=== PATIENT | female | born 1935 | race Caucasian/White ===

== ENCOUNTER 2021-05-07 16:18 | Inpatient (IN) | payer OTHER ==
[~2021-05-07] VITALS: Ht 154.9 cm; Wt 64.9 kg
--- NOTE | ~2021-05-07 | EMS ---
[address] [address] EMS Patient Care Report Name: SHY DOWNEY Room #: 352-P ADM IN M.R.#: [id number] Admission: 05/07/21 Attend Phys: Alli Christy Discharge: Date of : 34 Report #: [id number] THIS REPORT FOR: //name// Report Transmitted: 05/14/2021 12:46 EMS Care Summary [place], [place]/[facility] Incident [id number] @ 05/07/2021 15:29 Incident Location [address] [place] [address] Patient SHY DOWNEY Female, 86 Years 1935 Patient Address [address] [place] [id number] Patient History Hypertension (HTN),Hyperlipidemia,Gastro-Esophageal Reflux Disease (GERD),Anxiety Disorder (Panic Attacks),Depression,Glaucoma,Hypothyroidism, Patient Allergies No known allergies, Patient Medications Pantoprazole, Atorvastatin, Melatonin, Alprazolam, Levothyroxine, Docusate Sodium, Acetaminophen, Tramadol, Amlodipine, ASA, Chief Complaint Decreased LOC Disposition Transported [place] Dis[place] Reason Sick Person Transported To [facility] Narrative On arrival and waiting for staff to come to the door and unlock main door to [address] [address] EMS Patient Care Report Name: SHY DOWNEY Room #: 352-P ADM IN M.R.#: [id number] Admission: 05/07/21 Attend Phys: Alli Christy Discharge: Date of : 34 Report #: [id number] access Pt Nurse stated that Pt family is unhappy with the care that Pt was receiving and wanted her taking to [facility] ER due to her Granddaughter was a RN at. Medic asked Nurse if he could explain what was going on with Pt and what medical reason why the family wanted Pt transported to [facility] and he once again repeated the same thing over again. When EMS finally made it to Pt room Pt was found to be unresponsive and Nurse stated that she arrived from [facility] in her present state and Nurse things prior to arrival Pt might of had a stroke on 05/06/2021. Pt Nurse also stated Pt was flown up from [place] to [facility] via Airline and Pt was diagnosed with Coved 19 prior to leaving [place] for [facility]. Nurse also stated that Pt family took Pt from [facility] to [facility] ER where she was admitted for Covid 19, Nurse was unsure of date Pt was scene in the ER. Nurse also stated that Pt was transported to there facility and when asked if Pt had a Negative Covid test Nurse stated " Covid only last 10 days and then she is no longer with covid and is clear". EMS asked once again if Pt had a Negative test or any Covid test on arrival to there facility and he stated " No cause it has been over 10 days and she no longer has covid". EMS asked Nurse if this is Pt normal baseline and he said no, prior to flying up to [place] she lived on her own and was alert . Pt was found in her room pale, diaphoretic, with cyanotic lips, finger nail beds. Pt is a GCS 08. EMS had issues entering building and once EMS gained access they found Pt in bed in room and Pt is very hot to the touch, diaphoretic and pale skin color and cyanotic fingertips, nail bed and lips and Pt is a GCS 08. Pt is with oxygen Sat's @ 88% on room air and lungs sounds were absent in lower lobes bilateral and diminished in upper lobes bilateral as well. EMS immetally started Neb tx via neb mask with Albuterol and Atrovent at 8 LPM oxygen and when Pt was placed on 4 lead she was found to be in Course A Fib which Pt does not have a history of Afib. EMS preformed a 12 lead that showed Pt to be in a unknown rhythm and when EKG strip was examined closer by Medic it was determined that Pt was with rapid course Atrial Fib. Pt is with irregularly irregular and bounding radial pulse and carotid pulse' on eval by EMS. and while performing the EKG / 12 lead Pt was not moving or shaking during procedure, . Due to Pt having irregularly irregular radial and carotid pulses Medic decided not to synchronize cardiovert Pt due to Pt LOC being the same since she was received by staff 2 days ago and due to Pt condition Medic felt a closer facility would be better for Pt then running down to [facility]. Medic opened up the door to inform staff and Pt Granddaughter who also arrived of Medic's decision and she Stated "My father wanted her to go to [facility] cause my sister is a Nurse there" . Medic attempted to explain to her that Pt is critical and needed to go to closer facility for care, tx and once stabilized if they wanted her transferred they could request her to be transported. Pt Granddaughter stated "No and you can explain to my father when he arrives " Pt son arrived and staff and Granddaughter informed him of Medics decision and Prior to leaving for clarification Medic contacted Medical Control at [facility] [address] [place] [address] EMS Patient Care Report Name: SHY DOWNEY Room #: 352-P ADM IN M.R.#: [id number] Admission: 05/07/21 Attend Phys: Alli Christy Discharge: Date of : 34 Report #: [id number] -W ER and explained situation and concern to Medical Control and per M.D 1 EMS received his blessing to transport to [facility] for further care and tx and if they wanted Pt transported later on they could request it. By this time other family members showed up and EMS requested Car [employer] and pumper to return along with [facility] due to Pt family at times attempting to get into Unit while EMS was treating Pt. Once scene was secured by Car [employer] and Pumper 28 EMS was able to leave and transport Pt to [facility] for further care, tx and Pt then went back into slower A Fib rhythm but still remained a GCS 08. EMS repeated Albuterol tx again and contacted [facility] and informed them of the situation. Pt started to move air a little better thru lung gimenez and Pt oxygen sat's increased and Pt showed no signs of cyanotic noted but is still pale and diaphoretic and hot to the touch during transport. Pt received by RN and Eric in ER. EMS was informed later after the call that Pt was positive for Covid 19 due to a rapid test done on arrival in the ER. Initial Vitals @15:51P: 280,R: 24,BP: 154/71,Pain: 0/10,GCS: 8,Temp: 102.4F,Glucose: 144,SpO2: 88,Revised Trauma: 10,NV Suspected: false @16:03P: 207,R: 22,Pain: 0/10,GCS: 8,SpO2: 97,NV Suspected: false @16:09P: 118,R: 22,BP: 139/74,Pain: 0/10,GCS: 8,SpO2: 98,Revised Trauma: 10,NV Suspected: false @16:11P: 109,R: 22,BP: 142/82,Pain: 0/10,GCS: 8,SpO2: 98,Revised Trauma: 10, Assessments @15:43MENTAL:Unresponsive,SKIN:Cyanotic,Pale,Hot,Diaphoresis,HEENT:Eyes: Right Pupil: 6-mm,Eyes: Left Pupil: 6-mm,Eyes: Left: Constricted,Eyes: Right: Constricted,Head/Face: No Abnormalities,Neck/Airway: No Abnormalities,LUNG SOUNDS:General: No Abnormalities,ABDOMEN:General: No Abnormalities,PELVIS//GI:No Abnormalities,EXTREMITIES:Capillary Refill: Right Upper: 4 Sec,Left Arm: No Abnormalities,Right Arm: No Abnormalities,Left Leg: No Abnormalities,Right Leg: No Abnormalities,PULSE:Carotid: 1+ Thready,Radial: 1+ Thready,NEURO:No Abnormalities,@16:14MENTAL:No Abnormalities,SKIN:Hot,Pale,Diaphoresis,HEENT:Eyes: Right Pupil: 5-mm,Eyes: Left Pupil: 5-mm,Eyes: Right: Dilated,Eyes: Left: Dilated,Head/Face: No Abnormalities,Neck/Airway: No Abnormalities,LUNG SOUNDS:General: No Abnormalities,ABDOMEN:General: No Abnormalities,PELVIS//GI:No Abnormalities,EXTREMITIES:Capillary Refill: Right Upper: < 2 Sec,Capillary Refill: Left Upper: 4 Sec,Left Arm: No Abnormalities,Right Arm: No Abnormalities,Left Leg: No Abnormalities,Right Leg: No Abnormalities,PULSE:Carotid: 1+ Thready,Radial: 1+ Thready,NEURO:No Abnormalities, Impression [facility] [address] [place] [address] EMS Patient Care Report Name: SHY DOWNEY Room #: 352-P ADM IN M.R.#: [id number] Admission: 05/07/21 Attend Phys: Alli Christy Discharge: Date of : 34 Report #: [id number] Acute Respiratory Distress (Dyspnea) Procedures @16:0312-Lead ECGResponse: UnchangedSucceeded@15:43ALS AssessmentResponse: UnchangedSucceeded@16:05General CommentsResponse: Unchanged@15:513-Lead ECGResponse: UnchangedSucceeded@16:05Saline Lock 0cc (18 ga) Site: Antecubital-LeftResponse: UnchangedFailed@15:53Saline Lock 0cc (20 ga) Site: Antecubital-LeftResponse: UnchangedFailed@15:46Albuterol - 2.5 Milligrams (mg) - NebulizedResponse: Unchanged@16:06Albuterol - 2.5 Milligrams (mg) - NebulizedResponse: Unchanged@15:43Atrovent - 0.5 Milligrams (mg) - NebulizedResponse: Unchanged@15:58General CommentsResponse: Unchanged Timeline 15:28,Call Received 15:28,Dispatch Notified 15:29,Dispatched 15:31,En Route 15:36,On Scene 15:43,At Patient 15:43,ALS Assessment,Response: UnchangedSucceeded, 15:43,Atrovent - 0.5 Milligrams (mg) - Nebulized,Response: Unchanged 15:46,Albuterol - 2.5 Milligrams (mg) - Nebulized,Response: Unchanged 15:51,3-Lead ECG,Response: UnchangedSucceeded, 15:51,BP: 154/71 M,PULSE: 280,RR: 24 R,SPO2: 88 Ox,ETCO2: ,B,PAIN: 0,GCS: 8, 15:53,Saline Lock 0cc 20 ga Site: Antecubital-Left,Response: UnchangedFailed, 15:58,General Comments,Response: Unchanged 16:03,12-Lead ECG,Response: UnchangedSucceeded, 16:03,BP: / M,PULSE: 207,RR: 22 R,SPO2: 97 Ox,ETCO2: ,BG: ,PAIN: 0,GCS: 8, 16:05,General Comments,Response: Unchanged 16:05,Saline Lock 0cc 18 ga Site: Antecubital-Left,Response: UnchangedFailed, 16:06,Albuterol - 2.5 Milligrams (mg) - Nebulized,Response: Unchanged 16:08,Depart Scene 16:09,BP: 139/74 M,PULSE: 118,RR: 22 R,SPO2: 98 Ox,ETCO2: ,BG: ,PAIN: 0,GCS: 8, 16:11,BP: 142/82 M,PULSE: 109,RR: 22 R,SPO2: 98 Ox,ETCO2: ,BG: ,PAIN: 0,GCS: 8, 16:15,At Destination 16:31,Call Closed Disclaimer v1.1 Copyright 2020 [employer] This EMS Care Summary contains data elements from the applicable legal record (which may be displayed differently). It is designed to provide pertinent information for the following purposes: continuity of care, clinical quality, and state data reporting. The complete legal record is available to ED staff and administrators of the receiving hospital in [employer]'s Patient Tracker. All data is provided "as is."
[2021-05-07 16:19] VITALS: BP 151/98
[2021-05-07 16:48] LABS: URINE BLOOD 1+ (Negative); URINE CLARITY CLOUDY; URINE COLOR YELLOW; URINE GLUCOSE-RANDOM* NEGATIVE (Negative); URINE KETONES 2+ (Negative); URINE PROTEIN (DIPSTICK) 1+ (Negative); URINE SPECIFIC GRAVITY >= 1.030 (1.005-1.035)
[2021-05-07 16:49] LABS: ABSOLUTE NEUTROPHILS 9.5 thou/uL (1.4-8.2); BASOPHILS 0.4 % (0.0-2.0); EOSINOPHILS 0.1 % (0.0-3.0); HEMATOCRIT 44.5 % (37.0-47.0); LYMPHOCYTES 12.5 % (24.0-44.0); MCHC 33.7 g/dL (28.0-37.0); MONOCYTES 10.6 % (1.0-8.0); PLATELET COUNT 394 thou/uL (150-400); POLYS 76.4 % (36.0-66.0); RDW 12.9 % (10.5-14.5); WBC 12.4 thou/uL (4.0-11.0)
[2021-05-07 16:54] LABS: CALCIUM 8.9 mg/dL (8.5-10.1); CREATININE 0.8 mg/dL (0.6-1.0); POTASSIUM 3.6 mmol/L (3.5-5.1)
[2021-05-07 16:58] LABS: URINE LEUKOCYTES-REFLEX 2+ (Negative); URINE NITRITE-REFLEX POSITIVE (Negative)
[2021-05-07 16:59] LABS: ICTOTEST (BILI CONFIRMATORY) Negative (Negative); URINE BILIRUBIN NEGATIVE (Negative)
[2021-05-07 17:02] LABS: AMP/METHAMP Negative (Negative); BARBITURATES Negative (Negative); BENZODIAZEPINES POSITIVE (Negative); COCAINE Negative (Negative); METHADONE Negative (Negative); OPIATES Negative (Negative); PCP Negative (Negative)
[2021-05-07 17:04] LABS: ALBUMIN 2.8 g/dL (3.4-5.0); TOTAL BILIRUBIN 0.7 mg/dL (0.2-1.0); TOTAL PROTEIN 7.2 g/dL (6.4-8.2)
[2021-05-07 17:11] LABS: BACTERIA-REFLEX >30 Many /HPF (None Seen); MUCUS 4-6 Moderate strn/LPF (None Seen); SQUAMOUS None Seen /LPF (0-3); URINE RBC 1-2 Rare /HPF (NONE SEEN); URINE WBC-REFLEX >25 Many /HPF (0-5)
--- NOTE | 2021-05-07 17:51 | NUR ---
FAMILY PHONE NUMBERS PER FAMILY CALL SHY FIRST THE DAUGHTER AT [phone] IF UNABLE TO REACH PLEASE CALL GRANDDAUGHTER JABARI TONEY [phone] OR SON SHANE OCONNOR [phone]
[2021-05-07 18:02] VITALS: BP 155/77
[2021-05-07 18:08] VITALS: BP 155/77
[2021-05-07 18:34] VITALS: BP 149/78
[2021-05-07 23:38] VITALS: BP 146/78
[2021-05-08] VITALS (7 sets, daily range): BP systolic 152–210; BP diastolic 72–102
[2021-05-08] MEDS ORDERED: XANAX 0.25 MG0.25 MG PO (03:29)
[2021-05-08] MEDS ORDERED: LEVO-T75 MCG PO (03:30)
[2021-05-08] MEDS ORDERED: NORVASC5 MG PO (03:31)
[2021-05-08] MEDS ORDERED: LIPITOR 10 MG10 M1 PO (03:32)
[2021-05-08] MEDS ORDERED: OMEPRAZOLE40 MG PO (03:33)
[2021-05-08] MEDS ORDERED: ASA81BEC PO (03:34)
[2021-05-08] MEDS ORDERED: VITAMIN D21250 MCG PO (03:36)
[2021-05-08] MEDS ORDERED: APAP650 PO (03:37)
[2021-05-08] MEDS ORDERED: VITAMIN E1000 UNIT PO (03:39)
[2021-05-08] MEDS ORDERED: EVENING PRIMRO1 EACH PO (03:41)
[2021-05-08] MEDS ORDERED: PRESERVISION L1 EACH PO (03:42)
--- NOTE | 2021-05-08 05:14 | NUR ---
ADMIT PT ADMITTED TO 3 HAY FROM ED WITH COVID PNEUMONIA, AND AMS. PT NON VERBAL BUT DOES AWAKE TO STIMULI. RESISTANT TO CARES GETS VERY TENSE. ON 2 LITERS O2 VIA NC, REPOSITIONED Q2HRS. NO SKIN ISSUES NOTED. IVF INFUSING ORDERED, WILSON INTACT DRAINING A MODERATE AMOUNT OF DARK YELLOW URINE. FAMILY GIVEN PHONE UPDATE AND HELPED COMPLETE ADMISSION QUESTIONAIRE. TELEMETRY INTACT READING SR/ST, AFIB. CONTINUE POC.
[2021-05-08 06:32] LABS: HEMATOCRIT 42.7 % (37.0-47.0); HEMOGLOBIN 14.2 gm/dL (12.0-15.0); MCH 30.4 pg (26.0-34.0); MCHC 33.2 g/dL (28.0-37.0); MCV 91.4 fL (80.0-100.0); RBC 4.67 mil/uL (4.20-5.00); RDW 13.2 % (10.5-14.5); WBC 7.1 thou/uL (4.0-11.0)
[2021-05-08 06:35] LABS: CALCIUM 8.1 mg/dL (8.5-10.1); CREATININE 0.7 mg/dL (0.6-1.0); POTASSIUM 3.6 mmol/L (3.5-5.1)
[2021-05-08 06:39] LABS: ALBUMIN 2.4 g/dL (3.4-5.0); PHOSPHORUS 2.3 mg/dL (2.5-4.9)
--- NOTE | 2021-05-08 15:01 | EKG ---
[place] [address] [facility] [email or web address] [address] ELECTROCARDIOGRAM REPORT Name: SHY DOWNEY Room #: 352-P ADM IN M.R.#: [id number] Admission: 05/07/21 Attend Phys: Alli Christy Discharge: Date of : 34 Report #: [id number] [facility] ED Test Date: 2021-05-07 Test Time: 16:22:29 Pat Name: SHY DOWNEY Department: Room: [facility] Gender: F Coil Winder: ARCENIO : 1935 Requested By: Eugene Conklin Order Number: [id number] MD: Flavio Fry Measurements Intervals [place] Rate: 122 P: DC: QRS: -33 QRSD: 113 T: 29 QT: 340 QTc: 485 Interpretive Statements Atrial fibrillation Leftward axis Poor R wave progression Artifact in lead(s) I,aVR,aVL,V1,V2,V3,V4,V5,V6 No previous ECG available for comparison Electronically Signed On 05-08-2021 15:00:51 CDT by Flavio Fry [email or web address] <ELECTRONICALLY SIGNED> By: Flavio Fry MD, [facility] 05/08/21 1500 1622 1622 Flavio Fry MD, [facility] /EPI
--- NOTE | 2021-05-08 17:29 | NUR ---
PT ALERT AND ORIENTED X 0. PT IS ROMANSH ONLY SPEAKING, BUT IS NONVERBAL WHEN PHONOGRAPH CARTRIDGE ASSEMBLER IS ATTEMPTED. SPOKE WITH AND UPDATED FAMILY ABOUT PT CONDITION, PT'S DAUGHTER SAID PT HAS HISTORY OF UTI'S WITH CONFUSION. PT WAS ABLE TO ANSWER YES/NO QUESTIONS FOR DAUGHTER. PT DENIED PAIN WHEN SPEAKING TO DAUGHTER. DAUGHTER INFORMED US PT TESTED POSITIVE FOR COVID ON 04/25, WITH SYMPTOMS STARTING ON 04/19. PT IS ANXIOUS AND UNCOMFORABLE WITH PHYSICAL TOUCH. PT IS ON [address]. SKIN INTACT WITH SOME BRUISING. DIMINISHED UPPER LOBES AND CRACKLES IN LOWER LOBES. FALL PRECAUTIONS IN PLACE. WILL CONTINUE TO MONITOR.
--- NOTE | 2021-05-08 17:51 | NUR ---
PHYSICIAN MADE AWARE OF NPO DUE TO FAILED SWALLOW STUDY
[2021-05-09 03:00] VITALS: BP 155/74
--- NOTE | 2021-05-09 04:29 | NUR ---
PROGRESS PT MORE AWAKE THIS SHIFT, RESISTING CARES BUT ALLOWS WHEN SPOKEN TO. PT IS UPPER SORBIAN SPEAKING AND SUFFERS FROM DEMENTIA SO IS NOT ABLE TO COMMUNICATE. BRUISE NOTED TO RIGHT BUTTOCK FAMILY REPORTED SHE HAD 3 FALLS BEFORE HOSPITALIZATION. REPOSITIONED Q2HRS. IV TO LF INTACT INFUSING IVF'S ORDERED. ORAL CARE PROVIDED. PT REFUSED PERICARE BUT IT WAS PERFORMED BEST I COULD WITH HER RESISTANCE. URINE DARK YELLOW IN DECREASED AMOUNT FROM PREVIOUS SHIFT. TELEMETRY INTACT READING ST/AFIB. O2 SAT ON ROOM AIR WAS 95% SO O2 LEFT OFF WILL CONTINUE TO MONITOR.
[2021-05-09 05:38] LABS: HEMATOCRIT 42.6 % (37.0-47.0); HEMOGLOBIN 14.5 gm/dL (12.0-15.0); MCH 30.9 pg (26.0-34.0); MCV 90.9 fL (80.0-100.0); RBC 4.68 mil/uL (4.20-5.00); RDW 13.1 % (10.5-14.5); WBC 12.2 thou/uL (4.0-11.0)
[2021-05-09 05:55] LABS: ALBUMIN 2.4 g/dL (3.4-5.0); CALCIUM 8.3 mg/dL (8.5-10.1); CREATININE 0.7 mg/dL (0.6-1.0); PHOSPHORUS 2.2 mg/dL (2.5-4.9); POTASSIUM 3.2 mmol/L (3.5-5.1)
[2021-05-09 08:08] VITALS: BP 182/76
--- NOTE | 2021-05-09 13:32 | HC ---
[facility] [place] [address] CONSULTATION Name: SHY DOWNEY Room #: 352-P ADM IN M.R.#: [id number] Admission: 05/07/21 Attend Phys: Alli Christy Discharge: Date of : 34 Report #: [id number] THIS REPORT FOR: cc: Anuj Parry MD, Srinath MD [place], Roxane S. DO ~ NEUROLOGY CONSULTATION HISTORY OF PRESENT ILLNESS: The patient is an 86-year-old female who presented to the Emergency Department with altered mental status, shortness of breath and rapid heart rate. Per EMS, the patient was found with altered mental status and elevated heart rate. The patient tested positive for COVID 10 days ago. She had been admitted to [facility] and then transferred to [facility]. According to the information in the chart, the patient's son states that the patient has been altered since admission to [facility] which was roughly 8 days prior to admission. According to the family, the patient is talkative and mostly independent at baseline, but has been unresponsive and contracted since admission. When the family spoke with the patient's primary care provider, they told them to take the patient to [facility] but the patient was brought to [place] instead. The patient is unable to provide any history. After leaving the hospital, the patient's daughter and granddaughter called my office and I was able to speak to them both. They tell me the patient has difficulty with memory although she is able to take care of her dog. The patient sometimes does not recognize her granddaughter. She thinks her granddaughter is her daughter. She also has general trouble with her memory but the family thought that was normal for her age. They tell me that the patient does not have a history of Parkinson's disease. They also told me that the patient has not be right since she was admitted to the hospital. They also told me the patient was not taking haloperidol. They didn't know what the medication was. The patient also has difficulty remembering to take her medications and they remind her. PAST MEDICAL HISTORY: Hypothyroidism, anxiety, hypertension, hyperlipidemia, gastroesophageal reflux. PAST SURGICAL HISTORY: Unknown. CURRENT MEDICATIONS: Include Sinemet 10/100 3 times a day, dexamethasone 6 mg IV, enoxaparin 30 mg subq at bedtime, hydralazine 10 mg IV q. 8 hours, levofloxacin 500 mg IV daily. ALLERGIES: None. [address] [address] CONSULTATION Name: SHY DOWNEY Room #: 352-P [facility]#: [id number] Admission: 05/07/21 Attend Phys: Alli Christy Discharge: Date of : 34 Report #: [id number] VITAL SIGNS: Temperature is 37.3, pulse rate 107, respiratory rate 26, blood pressure 163/86. Bedside pulse oximetry 95% on 2 liters. LABORATORY WORK: Hematology: White blood cell count 7.1, hemoglobin 14.2, hematocrit 42.7, MCV 91.4, platelet count 337,000. Urinalysis, 1+ protein, 2+ ketones, 1+ blood, nitrite positive, leukocyte esterase positive, many white blood cells. Chemistry: Sodium 151, potassium 3.6, chloride 112, carbon dioxide 29, BUN 39, creatinine 0.7, GFR 79, glucose 194, lactic acid 1.7, calcium 8.1, phosphorus 2.3, total bilirubin 0.7, AST 30, ALT 30, alkaline phosphatase 151, total protein 7.2, albumin 2.4. B12 1121. TSH 2.21, free T4 of 1.2. IMAGING: CT scan of the head is unremarkable. NEUROLOGIC EXAMINATION: The patient is unresponsive to verbal or tactile stimulation. She is sitting up in bed with her eyes closed and her arms clenched to her chest. She does not follow any commands. Pupils are equally round and reactive to light. Facial expressions appear symmetrical bilaterally. Motor exam: The patient is keeping her arms tied into her chest. It is very difficult to perform passive range of motion in the arms or the legs. Reflexes are trace throughout. Plantar responses are flexor. Coordination and gait cannot be tested. IMPRESSION AND PLAN: The patient was more alert than she is now. However, after speaking to her daughter and granddaughter, there is an underlying component of dementia, perhaps even moderate in severity since she sometimes has difficulty recognizing her granddaughter. There are other factors that can contribute to increased confusion. One of these is COVID intself: however, the patient is also hypernatremic and she has a urinary tract infection. The IV fluids have been discontinued. If the patient does go back on IV fluids, I would recommend half-normal saline. For the urinary tract, she is being treated with levofloxacin and blood cultures have been ordered and have been drawn, but the results are not available yet. The patient's B12 and folate are normal. The CT head is unremarkable. I realize the patient has increased tone in the upper extremities but I wouldn't recommend Sinemet at this point. At this point, I have no further suggestions, but we will reevaluate the patient tomorrow. <ELECTRONICALLY SIGNED> By: Alta Vallejo DO 05/09/21 1332 1512 [id number] Alta Vallejo DO /harsh
[2021-05-09 17:32] VITALS: BP 161/70
--- NOTE | 2021-05-09 19:25 | NUR ---
ASSUMED PATIENT CARE AT 0700. AWAKE. RESTLESS. AMBULATED IN ROOM. PROGRESSING TOWARDS POC GOALS.
[2021-05-09 19:29] VITALS: BP 141/74
--- NOTE | 2021-05-09 19:34 | NUR ---
ASSUMED PATIENT CARE AT 0700, AWAKE. ANXIOUS. NONE VERBLE. VSS. NOT TOWARDS POC GOALS.
[2021-05-10 05:03] VITALS: BP 116/42
--- NOTE | 2021-05-10 05:40 | NUR ---
PROGRESS PT ALERT BUT IS UGANDAN SPEAKING, MAY BE ABLE TO SPEAK SOME TRISTANIAN SHE ASKED ME WHEN SHE COULD EAT. REFUSES ORAL CARE SO 1 CC OF WATER PLACED IN MOUTH FOR COMFORT A FEW TIMES THROUGHOUT NIGHT NO CHOKING AFTER NOTED, APPLIED LIP BALM AND SHE SMILES AFTER. STILL IN CONTRACTED POSITION AND IS VERY RESISTANT TO CARES, REPOSITIONED THROUGHOUT NIGHT AND PICTURE TAKEN OF THE RIGHT BUTTOCK BRUISE THAT APPEARS LESS DARK THAN PREVIOUS SHIFT. HEELS FLOATED. LUNGS CLEAR AND O2 SATS 95 AND ABOVE ON ROOM AIR SO O2 REMOVED. HYDRALAZINE HELD BP 116/42. WILSON CATHETER IN PLACE 1050CC OF CLEAR LIGHT YELLOW URINE NOTED. IV TO LH INFUSING D5@100CC'S/HR. CONTINUE POC.
[2021-05-10 06:00] LABS: ALBUMIN 2.1 g/dL (3.4-5.0); CREATININE 0.7 mg/dL (0.6-1.0); PHOSPHORUS 2.8 mg/dL (2.5-4.9); POTASSIUM 3.2 mmol/L (3.5-5.1)
[2021-05-10 07:04] VITALS: BP 152/75
--- NOTE | 2021-05-10 10:00 | NUR ---
PT WAS PLACED ON CART FOR MRI...SHE BECAME AGITATED AND SWUNG AT STAFF...UNABLE TO CALM PATIENT SO AN ORDER WAS RECEIVED FROM FOR [facility] FOR MRI TO BE COMPLETED AFTER QUILLER OPERATOR CALLED TO STATE SHE WAS UNABLE TO KEEP PATIENT ON CART FOR TEST...WHEN PATIENT RETURNED FROM MRI SHE WAS VERY DROWSY...HER VSS BUT REMAINS DIFFICULT TO AWAKEN...WHEN TURNED PATIENT SHE WOKE UP AND WAS AGAIN TRYING TO GRAB AT STAFF...WILL MONITOR..
--- NOTE | 2021-05-10 11:28 | NUR ---
Case opened to follow for dc planning. Pt admitted with enceph/UTI and is covid recovered from first pos test on 04/25/21. Cm assessment completed with pt's dtr Amada with whom she lives in [place], [place]. She reports that they recently moved from [place], [place] a few months ago. The pt's pcp is with [facility] [phone], fax [phone]. She went to [facility] with covid and then dc'd to SNF at [facility] for rehab. She was only there less than 2 days before admitted here. Family reports the pt's primary language is [place] Islander. She lives with them and is normally indep with gait short distances and needs help on the stairs. She helps with laundry and dishes and is normally active throughout the day. She only uses a rwalker and cane when going out of the home. She is getting an MRI today of her cspine/head. Neuro is seeing her. Family reports her to be forgetful and have some stm loss. Pt's sons are in town from [place] and would like to see her if ISO is dc'd. Nursing updated. Clinical updated faxed to the [facility] liason who reports they are holding her bed. They will need therapy evals and new ins auth for readmission. Pt's dtr is not sure if they want her to return there. They are discussing as a family. HH referral discussed along with other snf options. They feels she may do better with family who are familiar to her and speak [place]er. PT/OT evals are pending. ST is recommending a modified diet and honey thickened liquids. The pt is unvaccinated per her dtr. Dtr is is also recovered from recent covid. The pt has a lift chair at home, rwalker and a cane. Dtr notes poor vision due to glaucoma. Cm role introduced. Will follow along and she how she does with therapy.
[2021-05-10 14:58] VITALS: BP 132/77
[2021-05-10 19:45] VITALS: BP 135/54
--- NOTE | 2021-05-10 22:00 | NUR ---
PT ASLEEP SINCE BEGINNING OF SHIFT. PT OPENS EYES TO VERBALIZATION. COMPLIANT WITH VS AND LOVENOX. PT NOT MAKING VERBAL STATEMENTS. WILSON TO DD. BED ALARM ON. FLUSHED SKIN TONE. IVF INTACT.
--- NOTE | 2021-05-11 00:48 | NUR ---
PT AWAKENED PULLING OFF COVERS AND TELE BOX, GRABBING ON TO WIRES AND NOT RELEASING. ICE CREAM AND HS MEDS PROVIDED SINCE PT AWAKE. PROVIDER NOTIFIED. PT WONT LEAVE TELE BOX ON, AND HX OF SR, AFIBB, FEW RUNS OF VTACH. PRN PROVIDED TO HELP PT RELAX AND SO NURSE CAN REPLACE TELE BOX.
[2021-05-11 03:32] VITALS: BP 135/63
[2021-05-11 04:42] LABS: CALCIUM 7.9 mg/dL (8.5-10.1); CREATININE 0.7 mg/dL (0.6-1.0); MAGNESIUM 1.6 mg/dL (1.8-2.4); POTASSIUM 3.1 mmol/L (3.5-5.1)
[2021-05-11 07:16] VITALS: BP 126/66
[2021-05-11 15:41] VITALS: BP 119/73
--- NOTE | 2021-05-11 18:18 | NUR ---
ASSUMED PATIENT CARE AT 0700. A/0X2. AGITATED IN AM. FAMILY CAME TO VISIT. POOR APPATITE. MAX ASSISTED TO CHAIR. SLOWLY TOWARDS POC GOALS.
[2021-05-11 19:26] VITALS: BP 152/72
[2021-05-12 02:44] VITALS: BP 153/82
--- NOTE | 2021-05-12 06:41 | NUR ---
PROGRESS PT ALERT ORIENTED TO SELF AND SITUATION, SPEAKS GUINEAN BUT DOES SPEAK SOME DUTCH. ASKED ME MY NAME TODAY. LUNGS CLEAR, VSS. TELEMETRY INTACT READING SR. TAKING HONEY THICK LIQUIDS WITH NO DIFFICULTY. IV TO LEFT FOREARM INTACT AND INFUSING IVF'S ORDERED WILSON IN PLACE DRAINING ADEQUATE AMOUNT OF CLEAR YELLOW URINE.. SON AT BEDSIDE AT START OF SHIFT PT WAS HAPPY AND CONVERSING. CALLED OUT A LITTLE WHEN HE LEFT BUT ABLE TO COMMUNICATE ENOUGH TO SETTLE HER IN FOR SLEEP. CONTINUE TO MONIOR
[2021-05-12 07:28] LABS: ALBUMIN 2.2 g/dL (3.4-5.0); CALCIUM 7.8 mg/dL (8.5-10.1); CREATININE 0.7 mg/dL (0.6-1.0); PHOSPHORUS 2.9 mg/dL (2.6-4.7); POTASSIUM 3.6 mmol/L (3.5-5.1)
[2021-05-12 07:42] VITALS: BP 128/80
--- NOTE | 2021-05-12 16:58 | NUR ---
Spoke with the daughter today and gave an update on pt's status. Daughter clearly stated that she does not want pt to go back to [facility] d/t their unsatisfactory experience. List of facilities were given yesterday to the grand daughter of the pt. Advised daughter to look at the facility and to choose her top 3 to 4 and case management will get back to them tomorrow and work on the facilities. PT and OT ordered. Family member at the bedside, was very greatful of the great care the pt has had with us. Family member also mentioned that they would have liked to keep the pt at home only that daughter with home pt lives with is sick with COVID. CM to follow.
[2021-05-12 17:00] VITALS: BP 127/86
--- NOTE | 2021-05-12 17:22 | NUR ---
RESUMED CARE THIS AM. PT ALERT AND ORIENTED X 2. PT COMPLAINED OF HEADACHE TODAY WITH GOOD RELIEF FROM ACETAMINOPHEN. PT APPETITE IS LOW. FAMILY AT BEDSIDE THIS AFTERNOON. PT GUARDS FROM ASSESSMENT. DENIES ANY NEEDS AT THE MOMENT. WILL CONTINUE TO MONITOR.
[2021-05-12 19:35] VITALS: BP 118/63
--- NOTE | 2021-05-12 22:31 | NUR ---
PROGRESS PT UP IN CHAIR AT START OF SHIFT TRANSFERRED BACK TO BED WITH MAX OF 2 GAIT BELT AND PIVOT TRANSFER. WILSON CATHETER DC'D, EXTERNAL FEMALE CATH PLACED. IVF'S INFUSING INTO LF WITHOUT DIFFICULTY. PT C/O BUTTOCK PAIN, BRUISE NOTED FROM FALLS AT HOME SOME SCABBING TO AREA NOTED BY DAY SHIFT PERICARE AND BARRIER CREAM APPLIED. TYLENOL GIVEN FOR COMFORT. PT REPOSITIONED AND BUTTOCKS AND HEELS OFFLOADED. CONTINUE POC. PLAN IS TO DC TO SNF WHEN MEDICALLY STABLE.
[2021-05-13 03:54] VITALS: BP 104/58
[2021-05-13 07:07] VITALS: BP 124/50
--- NOTE | 2021-05-13 14:16 | NUR ---
SW reviewed chart and spoke with nursing and attending physician. Ptis progressing towards goals for discharge. Recommendation made for pt to go to post-acute care v. home with 24 hour care. MIKKI spoke with pt's dtr, Amada, via phone to discuss options. Pt's dtr is sick with COVID and states that family is wanting to consider SNF placement. Pt's dtr/family do not want pt to return to [facility]. SW discussed alternate options with pt's dtr. Pt's dtr states that pt's granddtr mainly handles healthcare decisions. Contact info for SW provided for pt's granddtr to call to discuss SNF options. SW left in-network SNF list for pt's family to review. SW explained need for insurance authorization for SNF placement. Pt's dtr verbalized understanding. Awaiting call from pt's granddtr at this time. MIKKI is following to assist as needed with discharge planning.
[2021-05-13 15:23] VITALS: BP 109/62
--- NOTE | 2021-05-13 17:57 | NUR ---
assumed care of pt at 0700. pt alert to self and situation, limited anguillan speaking skills. incontinent of urine. ext cath of tube in place. skin tear to right glute - zguard and optifoam in place. q2t. fluids infusing per order. vitals stable. waiting on placement. family requesting to bring in emotional support dog - unable to per risk mgmt unless the dog is a service dog able to perform tasks.
[2021-05-13 19:58] VITALS: BP 144/54
--- NOTE | 2021-05-14 03:14 | NUR ---
PATIENT GOT AGITATED AROUND 2200, PRN XANAX GIVEN WITHOUT SUCCESS. PATIENT STARTED YELLING AND SEEMS LIKE SHE WAS SEEING UNSEEN OTHERS. PATIENT REMOVED THE EXTERNAL CATHETER AND LATER PULLED OUT THE IV.PRN HALDOL GIVEN PER ORDER D/T INCREASED ANXIETY/AGITATION. PATIENT REFUSED THIS NURSE TO INSERT ANOTHER IV ATTEMPT X2. PATIENT ENCOURAGED FLUIDS. PATIENT INCONTIENT PERICARE AND BARRIER CREAM APPLIED. PATIENT HAS NO S/S OF PAIN OR DISCOMFORT.PATIENT IN BED ASLEEP AT THIS TIME BREATHING REGULAR AND UNLABOURED.
[2021-05-14 07:44] VITALS: BP 146/64
--- NOTE | 2021-05-14 12:36 | NUR ---
Seen for LOS: Pt noted admitted with altered mental status r/t metabolic encephalopathy. Has dx dementia. Covid+ approx 15 days ago, admitted at [facility]. Family reports AMS since that admission. She has been confused, speaks Kiswahili, able to understand some Cape Verdean and communicate at times. Intakes poor on admit, but have improved as mental status improves and intakes at meals avg 75% last 2 days. Gets Ensure pudding at bkft, avg 75%. Meds and labs reviewed. Noted with no updated weight since 05/08. Plans to d/c to SNF when medically stable. Low nutrition risk with improved PO and appropriate interventions in place.
--- NOTE | 2021-05-14 12:42 | NUR ---
Obtain current weight
--- NOTE | 2021-05-14 14:04 | NUR ---
MIKKI reviewed chart and spoke with nursing and attending physician. Pt is progressing towards goals for discharge. Pt is on IV abx. MIKKI spoke with pt's granddtr, Smith, via phone to discuss discharge plan. In-network SNF list emailed to Smith for review. SW discussed need for insurance authorization for admission to a SNF. Pt refused to work with PT yesterday. Pt's granddtr states that family will encourage pt to work with therapy. Pt's granddtr states that family may consider having pt return home with HH. SW explained the amount of therapy at home v. in a SNF. Pt's family to discuss to see if they are able to meet pt's care needs at this time. Pt's dtr, who is normally pt's caregiver is recovering from COVID. No weekend discharge planned. MIKKI updated pt's nurse and attending physician. MIKKI is follwoing to assist as needed with discharge planning.
[2021-05-14 15:08] VITALS: BP 145/65
--- NOTE | 2021-05-14 16:06 | NUR ---
PATIENT WAS UP IN CHAIR THREE TO FOUR HOURS THIS SHIFT. WHILE UP IN CHAIR PATIENTS SON CAME TO VISIT. [place] HAD HER IV TUBING CHANGED OUT TWICE THIS SHIFT. PATIENT IS ALERT TO SELF. PATIENT TRANSFERRED BACK TO BED ON HER RIGHT SIDE. FALL PRECAUTIONS IN PLACE. BED ALARM IS IN PLACE. PAITENT HAS BEEN REPOSITIONED EVERY TWO HOURS.
[2021-05-14 19:19] VITALS: BP 180/69
--- NOTE | 2021-05-15 06:09 | NUR ---
PROGRESS PT ALERT AND ORIENTED X 2 NON BELARUSIAN SPEAKING AND VERY MODEST GETS VERY UPSET WITH PERICARE. DOESN'T LIKE THE EXTERNAL CATHETER. YELLING FOR THE POLICE AFTER A MALE TERRAZZO FINISHER HELPER TOOK CARE OF HER ON DAY SHIFT. SON AT BEDSIDE ROSS,MED PT DOWN. IV RESARTED AND IVF'S INFUSING ORDERED. ADEQUATE AMOUNT OF CLEAR YELLOW URINE. POOR PO FLUID INTAKE. REFUSING TO EAT OR DRINK D/T ANXIETY. FOLLOW POC INCREASE PO FOOD AND FLUIDS AND INCREASE ACTIVITY TOLERATED.
[2021-05-15 07:04] VITALS: BP 130/40
[2021-05-15 15:08] VITALS: BP 145/81
--- NOTE | 2021-05-15 16:29 | NUR ---
assumed care of pt at 0700. pt alert to self and situation, otherwise confused. poor appetite. incontinent of urine. turned q2h and prn. z-guard with optifoam on site of gluteal ulcer. ivf infusing per order. vitals stable. no other changes to report at this time. waiting on placement. m.
[2021-05-15 19:55] VITALS: BP 137/55
--- NOTE | 2021-05-15 21:42 | NUR ---
INCREASED AGITATION AND YELLING OUT FOR THE PAST HOUR. GAVE IM HALDOL PER ORDER.
[2021-05-16 04:07] VITALS: BP 128/90
--- NOTE | 2021-05-16 05:19 | NUR ---
pt requires turns and frequent comforting. she awakens and yells family members names. haldol did curb the agitiation. one dose allowed her to calm and rest. continues on iv fluids. careplan reviewed.
[2021-05-16 07:45] VITALS: BP 123/89
[2021-05-16 17:37] LABS: CALCIUM 8.3 mg/dL (8.5-10.1); CREATININE 0.8 mg/dL (0.6-1.0); POTASSIUM 3.8 mmol/L (3.5-5.1)
[2021-05-16 18:40] VITALS: BP 113/43
[2021-05-16 19:18] VITALS: BP 128/56
--- NOTE | 2021-05-16 19:50 | NUR ---
RN ASSUMED PT'S CARE AT 0700-1900PM, PT IS A&OX1 ( PERSON ), PT IS CONFUSED AND AGITATION AT TIME, PT NEEDS HELP MEALS AND ADL, PT'S VS ARE STABLE AT DAY SHIFT.
[2021-05-17 04:40] VITALS: BP 139/64
--- NOTE | 2021-05-17 05:58 | NUR ---
PT IS SLOWLY PROGRESSING TOWARD GOALS, CURRENTLY AWAITING PLACEMENT AT SNF. PT'S DAUGHTER AT BEDSIDE AT BEGINNING OF SHIFT, REPORTED PT WAS MILDLY AND REQUESTED "SOMETHING TO HELP HER CALM DOWN." PT NOTED MUSCLES TENSED IN BUE'S AND WITH FACIAL GRIMACING, MOANING AND SPEAKING IN LAO. PRN ALPRAZOLAM GIVEN WITH GOOD RESULTS - PT WAS CALM AND ABLE TO SLEEP FOLLOWING ADMINISTRATION. PT REPOSITIONED AT ROUTINE INTERVALS. WOUND TO LEFT BUTTOCK WITH DRESSING INTACT, BARRIER CREAM APPLIED. PUREWICK PATENT, CHANGED X1 THIS SHIFT. VSS WITH NO ACUTE EVENTS OVERNIGHT. WILL CONTINUE TO MONITOR
[2021-05-17 06:57] VITALS: BP 132/74
[2021-05-17 15:00] VITALS: BP 149/63
--- NOTE | 2021-05-17 16:07 | NUR ---
MIKKI reviewed chart and spoke with nursing and attending physician. Pt is progressing towards goals for discharge. Recommendation made for post-acute placement/24 hour care. MIKKI spoke with pt's granddtr, Smith, via phone to discuss discharge plan. In-network SNF list has been provided to pt's family for reivew. Pt's granddtr states that she and her family have decided that pt would benefit from going to a SNF at this time. Pt needs to get a little bit stronger prior to going back home. There are stairs in the home that pt must be able to navigate with family assistance. MIKKI explained that pt is medically stable and that facilities need to be chosen by tomorrow, in order for the referral and insurance auth process to be started. Pt's granddtr verbalized understanding. MIKKI updated attending physician and Director of Case Mgmt. MIKKI is following to assist as needed with discharge planning.
--- NOTE | 2021-05-17 17:51 | NUR ---
RN ASSUMED PT'S CARE AT 0700AM, PT IS A&OX1 ( PERSON ), PT IS CONFUSED, PT CAN NOT FOLLOW COMMANDS, PT IS CONTINUING IV FLUID AND IV ABX, PT NEEDS FEEDING AT MEAL TIME, PT NEEDS HELP ADL, PT GETS UP TO CHAIR WITH ASSIST, PT'S VS ARE STABLE BY THIS TIME.
[2021-05-17 19:52] VITALS: BP 96/47
[2021-05-18 07:14] VITALS: BP 115/62
--- NOTE | 2021-05-18 13:19 | NUR ---
SW reviewed chart and spoke with nursing and attending physician. Pt is progressing towards goals for discharge. Recommendation made for pt to go to post-acute care. Attending physician spoke with pt's dtr regarding discharge. SW left voice message for pt's granddtr, Smith, to discuss post-acute facility options. Awaiting call back at this time. MIKKI is following to assist as needed with discharge planning.
[2021-05-18 16:26] VITALS: BP 121/77
[2021-05-18] MEDS ORDERED: MIRALAX17 GM PO (17:02)
[2021-05-18] MEDS ORDERED: CARBIDOPA-LEVO1 EAC1 PO (17:02)
[2021-05-18 19:47] VITALS: BP 143/69
[2021-05-19 04:20] VITALS: BP 127/76
--- NOTE | 2021-05-19 05:33 | NUR ---
PT IS PROGRESSING TOWARD GOAL OF DISCHARGE. NO ACUTE EVENTS OVERNIGHT. PT WAS CALM AND COOPERATIVE WITH CARES.
[2021-05-19 07:05] VITALS: BP 108/52
[2021-05-19 11:37] LABS: CALCIUM 8.6 mg/dL (8.5-10.1); CREATININE 0.8 mg/dL (0.6-1.0); POTASSIUM 4.2 mmol/L (3.5-5.1)
--- NOTE | 2021-05-19 14:19 | NUR ---
MIKKI reviewed chart and spoke with nursing and attending physician. Pt is medically stable for discharge to [facility]. MIKKI spoke with Naima in admissions at [facility], who confirms they are able to accept pt pending insurance authorization. MIKKI faxed updates to [facility] for review. MIKKI updated pt's granddtr, Smith. Family is agreeable with plan. Pt's family is able to visit pt at the facility. Pt will not need to be in isolation at the facility. MIKKI is following to assist as needed with discharge planning.
[2021-05-19 15:57] VITALS: BP 92/45
--- NOTE | 2021-05-19 19:42 | NUR ---
ASSUMED PATIENT CARE AT 0700. PATIENT WAS SLEEP AFTER XANAX GIVEN AT 0944.WAKE UP AT 1900. POOR APPETITE. NOT TOWARDS POC GOALS.
[2021-05-19 20:47] VITALS: BP 110/50
--- NOTE | 2021-05-20 06:27 | NUR ---
PT ALERT AND ORIENTED X 1. PT HAS A POOR APPETITE. PT ON PUREE DIET AND HONEY THICK LIQUIDS. PT HAS PURWICK AND NO URINE OUTPUT WAS MEASURED. PT RESPONDS SOFTLY AND COOPERATIVELY WHEN SPEAKING TO HER IN ENGLISH. NURSE USED [employer] AND IT IS VERY HELPFUL. WILL CONTINUE TO MONITOR.
[2021-05-20 08:10] VITALS: BP 127/55
[2021-05-20 08:39] VITALS: BP 130/65
--- NOTE | 2021-05-20 09:33 | NUR ---
MIKKI received message from pt's granddtr, Smith, stating that family is interested in [facility]. Smith requests SNF referral to be sent to [facility] for review. MIKKI faxed referral and spoke with Louisa in admissions, who states they do not know if they will have a bed available today. MIKKI was notified by Naima at [facility], that they did receive insurance auth and can accept pt today. MIKKI updated pt's granddtr and explained that if [facility] does not have a bed available today, then pt will need to discharge to [facility], as pt is medically stable and insurance auth has been provided. MIKKI updated pt's nurse. Chart copy requested. MIKKI is following to assist as needed with discharge planning.
[2021-05-20] MEDS ORDERED: HALOPERIDOL 1 MG1 MG PO (11:56)
[2021-05-20] MEDS ORDERED: SEROQUEL 25 MG25 M1 PO (11:56)
--- NOTE | 2021-05-20 19:50 | NUR ---
RN ASSUMED PT'S CARE AT 0700-1630PM, PT STILL IS CONFUSED AND WEAKNESS, BUT PT'S VS ARE STABLE, PT DEOES NOT HAVE SOB, PT'S VS ARE STABLE, RN RECEIVED TO DC PT TO SNF, RN HAS GIVING REPORT TO SNF A NURSE, TRANSPORTATION FISHER TERRAPIN PT BY W/C AT 1630PM
== END 2021-05-20 16:54 | DRG 177 ==
LOC: ER 16:18 → 3W 18:08
PROVIDERS: Emergency Medicine; Hospitalist; Nurse Practitioner Family; ADMIT Hospitalist; ATTEND Hospitalist
DX: U07.1 COVID-19 (principal); G93.41 Metabolic encephalopathy; J12.82 Pneumonia due to coronavirus disease 2019; N39.0 Urinary tract infection, site not specified; E87.0 Hyperosmolality and hypernatremia; G82.20 Paraplegia, unspecified; B96.20 Unspecified Escherichia coli [E. coli] as the cause of diseases classified elsewhere; F03.90 Unspecified dementia, unspecified severity, without behavioral disturbance, psychotic disturbance, mood disturbance, and anxiety; E87.6 Hypokalemia; K21.9 Gastro-esophageal reflux disease without esophagitis; F32.A Depression, unspecified; E86.1 Hypovolemia; Z66 Do not resuscitate; L89.90 Pressure ulcer of unspecified site, unspecified stage; Z23 Encounter for immunization
CPT/HCPCS: 10080; 10879

== ENCOUNTER 2021-05-24 23:17 | Emergency (ER) | payer OTHER ==
[~2021-05-24] VITALS: Ht 170.2 cm; Wt 70.3 kg
--- NOTE | ~2021-05-24 | EMS ---
[address] [address] EMS Patient Care Report Name: SHY DOWNEY Room #: DEP EARNESTINE [employer]#: [id number] Admission: 05/24/21 Attend Phys: Discharge: 05/25/21 Date of : 33 Report #: [id number] THIS REPORT FOR: //name// Report Transmitted: 05/25/2021 06:15 EMS Care Summary [facility] MED-ACT Incident [id number] @ 05/24/2021 22:38 Incident Location [address] [place] [address] Patient SHY DOWNEY Female, 86 Years 1935 Patient Address [address] [place] [address] Patient History Hypertension (HTN),Hyperlipidemia,Gastro-Esophageal Reflux Disease (GERD),Urinary Tract Infection (UTI),Pneumonia,Hypothyroidism, Patient Allergies No known allergies, Patient Medications Buspirone, Acetaminophen, Lovenox, Carbidopa, Levothyroxine, Cephalexin, Aspirin, Miralax, Amlodipine, Atorvastatin, Chief Complaint fell hit head Disposition Transported No Lights/[place] Dispatch Reason Falls Transported To [facility] Narrative [address] [address] EMS Patient Care Report Name: SHY DOWNEY Room #: DEP EARNESTINE Gaming#: [id number] Admission: 05/24/21 Attend Phys: Discharge: 05/25/21 Date of : 34 Report #: [id number] was called for a 86y/o female that was found on the ground screaming. On EMS arrival pt is laying on the ground and is showing no obvious signs of acute distress. Pt is warm, pink and dry, GCS of 14 (normal for pt), breathing is non-labored and ABC's are intact. According to facility staff they heard pt screaming and found her on the ground with blood around her head. Staff states pt has a small laceration to the back right side of her head that was bleeding heavily initially. Once pt's head was wrapped bleeding was controlled easily. Pt only complains of head pain and being cold. Pt's main language is Macedonian but pt is able to answer some questions for EMS. Pt is unable to report if she lost consciousness after the fall. Staff reports that pt most likely hit her head on the corner of her dresser. Pt denies neck and back pain, chest pain and SOB. Pt is unable to understand further questions but does not report any other symptoms. Pt is rolled onto blanket and moved to cot without incident. Pt is secured via department policy then moved to unit. Physical exam finds a bandaged laceration with controlled bleeding to the back of pt's head. No other abnormalities are found on exam. V/S and Bg obtain while en route to [facility]. Pt continues to complain of pain to head for duration of transport. Pt is sheet lifted to ER bed 8 and report is given to RN. RN signs for pt due to normal AMS. 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,Response: Unchanged 22:36,Call Received 22:36,Psap Call 22:38,Dispatched 22:39,En Route 22:45,On Scene 22:47,At Patient 22:49,BP: 145/70 M,PULSE: 94,RR: 16 R,SPO2: 97 Ox,ETCO2: ,B,PAIN: 4,GCS: [facility] [address] [place] [address] EMS Patient Care Report Name: SHY DOWNEY Room #: DEP [facility]#: [id number] Admission: 05/24/21 Attend Phys: Discharge: 05/25/21 Date of : 33 Report #: [id number] , 22:56,BP: 149/75 M,PULSE: 59,RR: R,SPO2: 67 Ox,ETCO2: ,BG: ,PAIN: ,GCS: , 22:59,Depart Scene 23:00,Surgical Mask on Patient,Response: Unchanged 23:06,BP: 122/61 M,PULSE: 99,RR: R,SPO2: 96 Ox,ETCO2: ,BG: ,PAIN: ,GCS: , 23:12,BP: 117/57 M,PULSE: 95,RR: R,SPO2: 96 Ox,ETCO2: ,BG: ,PAIN: ,GCS: , 23:14,At Destination 23:25,Call Closed Disclaimer v1.1 Copyright 2020 [employer] This EMS Care Summary contains data elements from the applicable legal record (which may be displayed differently). It is designed to provide pertinent information for the following purposes: continuity of care, clinical quality, and state data reporting. The complete legal record is available to ED staff and administrators of the receiving hospital in [employer]'s Patient Tracker. All data is provided "as is."
--- NOTE | ~2021-05-24 | EMS ---
[address] [address] EMS Patient Care Report Name: SHY DOWNEY Room #: DEP EARNESTINE Gaming#: [id number] Admission: 05/24/21 Attend Phys: Discharge: 05/25/21 Date of : 33 Report #: [id number] THIS REPORT FOR: //name// Report Transmitted: 05/25/2021 06:16 EMS Care Summary [facility] MED-ACT Incident [id number] @ 05/24/2021 22:38 Incident Location [address] [place] [address] Patient SHY DOWNEY Female, 86 Years 1935 Patient Address [address] [place] [address] Patient History Hypertension (HTN),Hyperlipidemia,Gastro-Esophageal Reflux Disease (GERD),Urinary Tract Infection (UTI),Pneumonia,Hypothyroidism, Patient Allergies No known allergies, Patient Medications Buspirone, Acetaminophen, Lovenox, Carbidopa, Levothyroxine, Cephalexin, Aspirin, Miralax, Amlodipine, Atorvastatin, Chief Complaint fell hit head Disposition Transported No Lights/[place] Dispatch Reason Falls Transported To [facility] Narrative [address] [address] EMS Patient Care Report Name: SHY DOWNEY Room #: DEP [facility]#: [id number] Admission: 05/24/21 Attend Phys: Discharge: 05/25/21 Date of : 33 Report #: [id number] was called for a 86y/o female that was found on the ground screaming. On EMS arrival pt is laying on the ground and is showing no obvious signs of acute distress. Pt is warm, pink and dry, GCS of 14 (normal for pt), breathing is non-labored and ABC's are intact. According to facility staff they heard pt screaming and found her on the ground with blood around her head. Staff states pt has a small laceration to the back right side of her head that was bleeding heavily initially. Once pt's head was wrapped bleeding was controlled easily. Pt only complains of head pain and being cold. Pt's main language is Swedish but pt is able to answer some questions for EMS. Pt is unable to report if she lost consciousness after the fall. Staff reports that pt most likely hit her head on the corner of her dresser. Pt denies neck and back pain, chest pain and SOB. Pt is unable to understand further questions but does not report any other symptoms. Pt is rolled onto blanket and moved to cot without incident. Pt is secured via department policy then moved to unit. Physical exam finds a bandaged laceration with controlled bleeding to the back of pt's head. No other abnormalities are found on exam. V/S and Bg obtain while [facility] route [facility]. Pt continues to complain of pain to head for duration of transport. Pt is sheet lifted to ER bed 8 and report is given to RN. RN signs for pt due to normal AMS. 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,Response: Unchanged 22:36,Call Received 22:36,Psap Call 22:38,Dispatched 22:39,En Route 22:45,On Scene 22:47,At Patient 22:49,BP: 145/70 M,PULSE: 94,RR: 16 R,SPO2: 97 Ox,ETCO2: ,B,PAIN: 4,GCS: [facility] [address] [place] [address] EMS Patient Care Report Name: SHY DOWNEY Room #: DEP [facility]#: [id number] Admission: 05/24/21 Attend Phys: Discharge: 05/25/21 Date of : 33 Report #: [id number] , 22:56,BP: 149/75 M,PULSE: 59,RR: R,SPO2: 67 Ox,ETCO2: ,BG: ,PAIN: ,GCS: , 22:59,Depart Scene 23:00,Surgical Mask on Patient,Response: Unchanged 23:06,BP: 122/61 M,PULSE: 99,RR: R,SPO2: 96 Ox,ETCO2: ,BG: ,PAIN: ,GCS: , 23:12,BP: 117/57 M,PULSE: 95,RR: R,SPO2: 96 Ox,ETCO2: ,BG: ,PAIN: ,GCS: , 23:14,At Destination 23:25,Call Closed Disclaimer v1.1 Copyright 2020 [employer] This EMS Care Summary contains data elements from the applicable legal record (which may be displayed differently). It is designed to provide pertinent information for the following purposes: continuity of care, clinical quality, and state data reporting. The complete legal record is available to ED staff and administrators of the receiving hospital in [employer]'s Patient Tracker. All data is provided "as is."
[~2021-05-24 23:17] MED LIST: APAP650 PO; ASA81BEC PO; CARBIDOPA-LEVO1 EAC1 PO; EVENING PRIMRO1 EACH PO; HALOPERIDOL 1 MG1 MG PO; LEVO-T75 MCG PO; LIPITOR 10 MG10 M1 PO; MIRALAX17 GM PO; NORVASC5 MG PO; OMEPRAZOLE40 MG PO; PRESERVISION L1 EACH PO; SEROQUEL 25 MG25 M1 PO; VITAMIN D21250 MCG PO; VITAMIN E1000 UNIT PO; XANAX 0.25 MG0.25 MG PO
[2021-05-24 23:47] LABS: ABSOLUTE NEUTROPHILS 5.5 thou/uL (1.4-8.2); BASOPHILS 0.9 % (0.0-2.0); EOSINOPHILS 1.1 % (0.0-3.0); HEMATOCRIT 37.4 % (37.0-47.0); HEMOGLOBIN 12.8 gm/dL (12.0-15.0); LYMPHOCYTES 20.1 % (24.0-44.0); MCHC 34.1 g/dL (28.0-37.0); MCV 90.8 fL (80.0-100.0); MONOCYTES 10.3 % (1.0-8.0); PLATELET COUNT 267 thou/uL (150-400); POLYS 67.6 % (36.0-66.0); RBC 4.12 mil/uL (4.20-5.00); WBC 8.1 thou/uL (4.0-11.0)
[2021-05-25 00:06] LABS: CALCIUM 8.5 mg/dL (8.5-10.1); CREATININE 0.9 mg/dL (0.6-1.0); POTASSIUM 3.9 mmol/L (3.5-5.1)
[2021-05-25 00:20] LABS: ALBUMIN 2.7 g/dL (3.4-5.0); TOTAL BILIRUBIN 0.6 mg/dL (0.2-1.0); TOTAL PROTEIN 6.8 g/dL (6.4-8.2)
[2021-05-25 00:28] LABS: URINE BILIRUBIN NEGATIVE (Negative); URINE BLOOD NEGATIVE (Negative); URINE CLARITY CLEAR; URINE COLOR YELLOW; URINE GLUCOSE-RANDOM* NEGATIVE (Negative); URINE KETONES NEGATIVE (Negative); URINE LEUKOCYTES-REFLEX NEGATIVE (Negative); URINE NITRITE-REFLEX NEGATIVE (Negative); URINE PROTEIN (DIPSTICK) NEGATIVE (Negative); URINE SPECIFIC GRAVITY <= 1.005 (1.005-1.035); URINE UROBILINOGEN 0.2 E.U./dl (0.2-1.0)
[2021-05-25 04:14] VITALS: BP 135/55
--- NOTE | 2021-05-25 07:16 | EKG ---
[address] [address] [place] [address] ELECTROCARDIOGRAM REPORT Name: SHY DOWNEY Room #: [facility]#: [id number] Admission: 05/24/21 Attend Phys: Discharge: 05/25/21 Date of : 33 Report #: [id number] [facility] ED Test Date: 2021-05-24 Test Time: 23:50:55 Pat Name: SHY DOWNEY Department: Room: Gender: F Cloth Winder: [place] : 1935 Requested By: Oswald Herrera Order Number: [id number] MD: Rodolfo Nicholson Measurements Intervals [place] Rate: 96 P: 33 OR: 188 QRS: -21 QRSD: 110 T: 28 QT: 355 QTc: 449 Interpretive Statements Sinus rhythm Ventricular premature complex RSR' in V1 or V2, probably normal variant Left ventricular hypertrophy Compared to ECG 05/07/2021 16:22:29 Ventricular premature complex(es) now present RSR' in V1 or V2 now present Left ventricular hypertrophy now present Atrial fibrillation no longer present Left-axis deviation no longer present Poor R-wave progression no longer present Electronically Signed On 05-25-2021 7:16:29 CDT by Rodolfo Nicholson [email or web address] <ELECTRONICALLY SIGNED> By: Rodolfo Nicholson MD, FACC 05/25/21 0716 49 [id number] Rodolfo Nicholson MD, FACC /EPI
== END 2021-05-25 04:22 ==
LOC: ER 23:17
PROVIDERS: Emergency Medicine
DX: S01.01XA Laceration without foreign body of scalp, initial encounter (principal); I10 Essential (primary) hypertension; E78.5 Hyperlipidemia, unspecified; E03.9 Hypothyroidism, unspecified; F32.9 Major depressive disorder, single episode, unspecified; F41.9 Anxiety disorder, unspecified; K21.9 Gastro-esophageal reflux disease without esophagitis; Z79.899 Other long term (current) drug therapy; W18.30XA Fall on same level, unspecified, initial encounter; Y93.89 Activity, other specified; Y92.89 Other specified places as the place of occurrence of the external cause; Y99.8 Other external cause status